=== PATIENT | male | born 1965 | race Hispanic/Latino ===

== ENCOUNTER → 2018-04-08 | Outpatient (CLI) | payer OTHER ==
--- NOTE | 2018-04-08 16:22 | Diagnostic Imaging Report ---
EXAMINATION: CT of the abdomen and pelvis without contrast. TECHNIQUE: Spiral CT images of the abdomen and pelvis were performed from the lung bases to the lesser trochanters. No intravenous contrast was given per renal stone protocol. Coronal and sagittal reformatted images were obtained. COMPARISON: None. CLINICAL HISTORY:Left-sided flank pain, pain upon urination, history of stones DISCUSSION: ABSENCE OF INTRAVENOUS CONTRAST DECREASES SENSITIVITY FOR DETECTION OF FOCAL LESIONS AND VASCULAR PATHOLOGY. ABDOMEN/PELVIS: LOWER THORAX: Partially visualized 4-5 mm pulmonary nodule in the right lower lobe (series 3, image 1). Lung bases are otherwise clear. HEPATOBILIARY: Diffusely decreased attenuation of the hepatic parenchyma consistent with steatosis. No focal lesions. No intra or extrahepatic biliary ductal dilation. GALLBLADDER: No radio-opaque stones or sludge. No wall thickening. SPLEEN: No splenomegaly. PANCREAS: No focal masses or ductal dilatation. ADRENALS: 7 mm fat density lesion in the left adrenal gland (series 3, image 48). Right adrenal gland is unremarkable. KIDNEYS/URETERS: 4-5 mm obstructing calculus at the left UVJ (series 3, image 145), which results in mild left hydronephrosis and hydroureter, mild perinephric and periureteral stranding. No other renal or ureteral calculi. No right hydronephrosis or obstruction. No renal contour abnormalities. PELVIC ORGANS/BLADDER: Bladder is unremarkable. No bladder calculi. PERITONEUM/RETROPERITONEUM: No free air or fluid. LYMPH NODES: No intra-abdominal,retroperitoneal, pelvic or inguinal lymphadenopathy. VESSELS: Minimal atherosclerotic calcification of the proximal vessels. GI TRACT: No bowel dilation or evidence of obstruction. Appendix is well identified and normal in caliber. A few scattered diverticula are noted in the descending colon, without diverticulitis. BONES AND SOFT TISSUES: No aggressive lytic lesions. Mild multilevel degenerative disc changes in the lower thoracic and lumbosacral spine. Soft tissues are grossly unremarkable except for a tiny fat-containing umbilical hernia. IMPRESSION: 1. 4-5 mm obstructing calculus at the left UVJ results in mild left hydronephrosis and hydroureter, and mild perinephric and periureteral stranding. 2. No other renal or ureteral calculi. No right hydronephrosis or obstruction. 3. Diffuse hepatic steatosis. 4. Partially visualized 4-5 mm pulmonary nodule in the right lower lobe. If patient is low risk, no further follow-up is indicated per Fle[employer]ner Society 2017 guidelines. Signed by: Dr. Arturo Causey M.D. on 04/08/2018 4:19 PM
== END ==
LOC: CT 15:25
PROVIDERS: ATTEND Family Medicine
DX: N20.1 Calculus of ureter (principal); R91.1 Solitary pulmonary nodule
CPT/HCPCS: 74176

== ENCOUNTER → 2019-03-31 | Outpatient (CLI) | payer OTHER ==
--- NOTE | 2019-03-31 16:13 | Diagnostic Imaging Report ---
Thyroid Ultrasound Clinical Diagnosis: Thyroid nodule Comparison: None Technique: 33 images were submitted for interpretation. Multiple longitudinal and transaxial images were performed with a 12 MHz linear transducer. Report: Right lobe: The right lobe measures 3.9 cm x 1.3 cm x 1.2 cm. In the inferior pole of the right lobe of the thyroid there is a 1.5 x 1.0 x 1.2 cm solid isoechoic [id number] nodule with smooth margins and no calcifications. The isthmus measures 2 mm. Left lobe: The left lobe measures 2.6 cm x 0.8 cm x 1.5 cm. In the inferior pole of the left lobe of the thyroid there is a 0.8 x 0.5 x 0.7 cm nodule which is mixed solid and cystic. Impression: 1. 1.5 cm mildly suspicious (TI-RADS, TR3) right inferior pole nodule 2. 0.8 cm nonsuspicious (TI-RADS, TR1) left inferior pole nodule Signed by: Sebastian Arriola MD on 03/31/2019 4:10 PM
== END ==
LOC: US 14:16
PROVIDERS: ATTEND Family Medicine
DX: E04.1 Nontoxic single thyroid nodule (principal)
CPT/HCPCS: 76536